=== PATIENT | female | born 1945 | race Caucasian/White ===

== ENCOUNTER 2018-09-08 05:36 | Day surgery (SDC) | payer OTHER ==
[~2018-09-08] VITALS: Ht 167.6 cm; Wt 89.8 kg
--- NOTE | ~2018-09-08 | O ---
[facility] [place] [address] OPERATIVE REPORT Name: SURY DAVIS V Room #: 150-6 [facility]..#: [id number] Admission: 09/08/18 Attend Phys: Gerardo Perkins MD Discharge: Date of : 41 Report #: [id number] THIS REPORT FOR: //name// CC: MAY Perkins DATE OF SERVICE: 09/08/2018 SURGEON: Gerardo Perkins MD AUTOMATIC DISPENSER MECHANIC: None. PREOPERATIVE DIAGNOSIS: Bilateral lower lid ectropion. POSTOPERATIVE DIAGNOSIS: Bilateral lower lid ectropion. OPERATION PERFORMED: Bilateral lower lid ectropion repair. ANESTHESIA: Local with IV sedation. COMPLICATIONS: None. INDICATIONS FOR PROCEDURE: This patient has bilateral acquired lower lid ectropion with chronic tearing and discharge. The current procedures are undertaken in order to improve the patient's visual function, lacrimal outflow, and level of comfort. Informed consent was obtained to include but not limit to the risk of loss of vision, bleeding, infection, scarring, failure to improve the problem and need for further surgery. DESCRIPTION OF OPERATION: The patient was taken to the operating room where 2% Xylocaine with epinephrine mixed with equal parts of 0.75% Marcaine with Wydase was administered transcutaneously and transconjunctivally to each lower lid and lateral canthal area. The patient was then prepped and draped in the usual sterile fashion. A Manasa clamp was then used to clamp the left lateral canthus following which a sharp canthotomy and cantholysis were performed. The tarsal strip was prepared laterally, removing the lash bearing portion of the redundant lid margin and the redundant tarsal plate. Hemostasis was achieved with a monopolar cautery, as it was throughout the case. The tarsal strip was then secured to the internal portion of the lateral orbital tubercle with two interrupted 5-0 Prolene sutures. The lateral canthal angle was sharply reformed as the subcutaneous structures and the skin were closed with multiple interrupted 6-0 plain gut sutures. Attention was then turned to the right side where the same procedure was [facility] [address] [place] [address] OPERATIVE REPORT Name: RYANSURY V Room #: 150-6 [facility]..#: [id number] Admission: 09/08/18 Attend Phys: Gerardo Perkins MD Discharge: Date of : 41 Report #: [id number] performed. The wounds were cleaned and dressed with ophthalmic antibiotic ointment. The patient was then transported to the recovery area, having tolerated the procedure well with no anesthetic or operative complications being noted. By: [id number] Gerardo Perkins MD /nt
[~2018-09-08 05:36] MED LIST: LIPITOR10 MG PO; LISINOPRIL-HCT1 EACH PO; LISINOPRIL20 MG PO; OMEPRAZOLE 20 M20 M1 PO; VITAMIN D1000 UNI1 PO; VITAMIN D31000 UNIT PO
[2018-09-08 13:49] LABS: CALCIUM 9.1 mg/dL (8.5-10.1); CREATININE 0.9 mg/dL (0.6-1.0); POTASSIUM 4.4 mmol/L (3.5-5.1)
[2018-09-08 15:22] VITALS: BP 153/69
== END 2018-09-08 16:02 | disposition home or self-care (01) ==
LOC: OR 05:36 → TBA 05:36 → OR 07:02
PROVIDERS: Ophthalmology
DX: H02.105 Unspecified ectropion of left lower eyelid (principal); H02.102 Unspecified ectropion of right lower eyelid; I10 Essential (primary) hypertension; E78.00 Pure hypercholesterolemia, unspecified; F17.210 Nicotine dependence, cigarettes, uncomplicated; K21.9 Gastro-esophageal reflux disease without esophagitis; Z87.19 Personal history of other diseases of the digestive system; Z90.49 Acquired absence of other specified parts of digestive tract; Z98.0 Intestinal bypass and anastomosis status; Z98.41 Cataract extraction status, right eye; Z98.42 Cataract extraction status, left eye; Z79.899 Other long term (current) drug therapy
CPT/HCPCS: 50010; 50101; 50386; 50398; 51636; 56527; 56531; 62110; 62850; 70005

== ENCOUNTER 2018-10-09 05:40 | Day surgery (SDC) | payer OTHER ==
[~2018-10-09] VITALS: Ht 170.2 cm; Wt 86.2 kg
--- NOTE | ~2018-10-09 | O ---
[facility] [place] [address] OPERATIVE REPORT Name: SURY DAVIS V Room #: 150-10 [facility]..#: [id number] Admission: 10/09/18 Attend Phys: Gerardo Perkins MD Discharge: Date of : 41 Report #: [id number] THIS REPORT FOR: //name// CC: Srikanth Perkins DATE OF SERVICE: 10/09/2018 SURGEON: Gerardo Perkins MD SOFTWARE RELEASE ENGINEER: None. PREOPERATIVE DIAGNOSIS: Bilateral upper lid dermatochalasia with superior visual field defect. POSTOPERATIVE DIAGNOSIS: Bilateral upper lid dermatochalasia with superior visual field defect. OPERATION PERFORMED: Bilateral upper lid functional blepharoplasty. ANESTHESIA: Local with IV sedation. COMPLICATIONS: None. INDICATIONS FOR SURGERY: This patient has acquired upper lid dermatochalasia with superior visual field loss both eyes because of excessive upper lid tissues to include skin and fat. Visual field testing demonstrates dense superior visual defects. Retesting with the upper lid elevated shows an improvement in visual field loss of over 30% and in excess of 12 degrees. The current procedures are undertaken in order to improve the patient's visual function. Informed consent was obtained to include but not limited to the loss of vision, bleeding, infection, scarring, failure to improve the problem and need for further surgery. DESCRIPTION OF OPERATION: The patient was taken to the operating room, where 2% Xylocaine with epinephrine mixed with equal parts of 0.75% Marcaine with Wydase was administered transcutaneously to each upper lid. The patient was then prepped and draped in the usual sterile fashion and a skin-marking pen was then utilized to outline an upper lid crease that was symmetrical on each side. Graefe forceps were then used to quantitate the redundant upper lid skin and it was similarly outlined. The incisions were then made with Carlee scissors and a skin-muscle flap removed from each side with high-temp cautery. Hemostasis was achieved with the monopolar cautery as it was throughout the case. The [address] [address] OPERATIVE REPORT Name: SURY DAVIS V Room #: 150-10 [facility] M.R.#: [id number] Admission: 10/09/18 Attend Phys: Gerardo Perkins MD Discharge: Date of : 41 Report #: [id number] orbital septum was then identified and the central and medial fat pads were inspected. The redundant soft tissue was then sculpted with the monopolar cautery. The upper lid crease was then reformed with tightening of the pretarsal orbicularis muscle. The upper lid crease was then further reformed with multiple interrupted 6-0 chromic sutures. The skin was then closed with a running 6-0 plain gut suture. The wound was then cleaned and dressed with ophthalmic antibiotic ointment and a nonstick dressing. The patient was transported to the recovery area, where cold compresses were applied, having tolerated the procedure well with no anesthetic or operative complications being noted. By: [id number] Gerardo Perkins MD /nt
[2018-10-09 11:15] VITALS: BP 123/54
== END 2018-10-09 13:20 | disposition home or self-care (01) ==
LOC: TBA 05:40 → OR 05:40
DX: H02.834 Dermatochalasis of left upper eyelid (principal); H02.831 Dermatochalasis of right upper eyelid; H53.462 Homonymous bilateral field defects, left side; H53.461 Homonymous bilateral field defects, right side; I10 Essential (primary) hypertension; E78.5 Hyperlipidemia, unspecified; K21.9 Gastro-esophageal reflux disease without esophagitis; F17.210 Nicotine dependence, cigarettes, uncomplicated; Z90.49 Acquired absence of other specified parts of digestive tract; Z98.890 Other specified postprocedural states; Z98.41 Cataract extraction status, right eye; Z98.42 Cataract extraction status, left eye; Z98.0 Intestinal bypass and anastomosis status; Z79.899 Other long term (current) drug therapy
CPT/HCPCS: 50010; 50101; 50386; 50398; 51636; 56531; 70005